=== PATIENT | female | born 1955 | race Caucasian/White ===

== ENCOUNTER 2025-05-14 05:20 | Day surgery (SDC) | payer MEDICARE, BC ==
[2025-05-05 14:28] LABS: LEUKOCYTE ESTERASE ,URINE LARGE (Neg); NITRITES, URINE NEGATIVE (Neg); OCCULT BLOOD,URINE SMALL (Neg)
[2025-05-05 14:29] LABS: MEAN PLATELET VOLUME 9.8 FL (7.4-10.4); RED CELL DISTRIBUTION WIDTH 14.8 % (11.5-14.5)
[2025-05-05 14:33] LABS: UA COLLECTION TYPE CLN CATCH MIDSTREAM
[2025-05-05 14:36] LABS: MUCUS STRANDS FEW /LPF (Neg); RENAL CELLS, URINE MODERATE /HPF; SQUAMOUS EPITHELIAL CELL,UR FEW /LPF (FEW)
[2025-05-05 14:37] LABS: YEAST FEW /HPF (NEGATIVE)
[2025-05-05 14:41] LABS: APTT 29 SECONDS (22-32); INR 1.0 INR
[2025-05-05 14:43] LABS: CREATININE 0.62 MG/DL (0.40-0.90); TOTAL CARBON DIOXIDE 27.3 MMOL/L (24-32); eGFR > 90 ML/MIN
--- NOTE | 2025-05-05 15:16 | RADIOLOGY REPORT ---
DI CHEST,TWO VIEWS, HISTORY: PRE OP CXR COMPARISON: None None TECHNICAL DATA: 2 view of the chest was obtained. FINDINGS: Lines and tubes: None Cardiomediastinal silhouette: normal Pulmonary vasculature: normal Lung expansion: normal Lung airspace: Trace left basilar atelectasis. Lung interstitium: normal Pleura: normal Pneumothorax: no Bones: Unremarkable Other: no IMPRESSION: Trace left basilar atelectasis.
[~2025-05-14] VITALS: Ht 165.1 cm; Wt 72.7 kg
[2025-05-14] VITALS (23 sets, daily range): BP systolic 86–134; BP diastolic 46–81; PULSE 52–95; RESP 10–18; TEMP 97.5–98.7; O2SAT 95–99
[~2025-05-14 05:20] MED LIST: ACET-896 PO; ALEN35TA53 PO; CALC-1215 PO; CELE-127 PO; CENTRUM SILVER; CRANBERRY; ESTR42.510 VG; HAIR SKIN NAILS; LEVO88TA2 PO; LORA10TA7 PO; MAXI TEARS; OMEP40CA21 PO; QUNOL; RED YEAST RICE
[2025-05-14] MEDS: ringers solution, lacted 1,000 ML IV SCH ×2 (06:08→11:00)
[2025-05-14] MEDS: ceFOXitin 2GM-NS 100mL ADDvant 100 ML IV ONE (06:08)
[2025-05-14] MEDS ORDERED: clindamycin phosphate 40gm vag cream ONE (06:54)
[2025-05-14] MEDS ORDERED: vasoPRESSIN 20 units/ml inj. ONE (06:54)
[2025-05-14] MEDS: aprepitant 40mg capsule PO ONE (07:14)
[2025-05-14] MEDS ORDERED: midazolam 1 mg/ML 2ml injection ONE (07:27)
[2025-05-14] MEDS ORDERED: fentaNYL /PF 50mcg/ml 5ml ampule ONE (07:53)
[2025-05-14] MEDS ORDERED: propofol inj 20 ML IV ONE (07:55)
[2025-05-14] MEDS ORDERED: dexamethasone sod phosphate 4mg/ml inj. ONE (07:55)
[2025-05-14] MEDS ORDERED: ondansetron/PF 4mg/2ml inj ONE (07:55)
[2025-05-14] MEDS ORDERED: rocuronium 10mg/ml inj IV ONE (07:55)
[2025-05-14] MEDS ORDERED: LIDOcaine 2% (20mg/ml) 5ml vial ONE (07:55)
[2025-05-14] MEDS ORDERED: glycopyrrolate 0.2mg/ml inj ONE (08:48)
[2025-05-14] MEDS ORDERED: fluoroscein sod 10% (100mg/ml) 5ml vial ONE (10:24)
[2025-05-14] MEDS ORDERED: ondansetron/PF 4mg/2ml inj IV PRN (11:00)
[2025-05-14] MEDS ORDERED: normal saline 500ml IV soln 500 ML IV PRN (11:00)
[2025-05-14] MEDS ORDERED: metoclopramide 5 mg/ml inj IV PRN (11:00)
[2025-05-14] MEDS ORDERED: HYDROcodone/acetaminophen 10/325mg tab PO PRN (11:00)
[2025-05-14] MEDS ORDERED: ringers solution, lacted 1,000 ML IV SCH (11:05)
[2025-05-14] MEDS ORDERED: acetaminophen 1,000mg/100ml IV 100 ML IV PRN (11:05)
[2025-05-14] MEDS ORDERED: HYDROmorphone/PF 0.2 MG/ML SYRINGE IV PRN ×2 (11:05)
[2025-05-14] MEDS ORDERED: labetalol 20mg/4ml (5mg/ml) syringe IV PRN (11:05)
[2025-05-14] MEDS ORDERED: hydrALAZINE 20mg/ml inj. IV PRN (11:05)
[2025-05-14] MEDS ORDERED: morphine 4 MG/ML inj SYRINge IV PRN (11:24)
[2025-05-14] MEDS: ondansetron/PF 4mg/2ml inj IV PRN (11:57)
[2025-05-14] MEDS: glycopyrrolate 0.2mg/ml inj IV ONE (11:57)
[2025-05-14] MEDS: morphine 4 MG/ML inj SYRINge IV PRN (12:30)
--- NOTE | 2025-05-14 19:08 | OPERATIVE REPORT ---
DATE OF SURGERY: 05/14/2025 DICTATING PHYSICIAN: Francisco Javier Trent MD PREOPERATIVE DIAGNOSIS: Symptomatic pelvic organ prolapse. POSTOPERATIVE DIAGNOSIS: Symptomatic pelvic organ prolapse. SURGEON: Francisco Javier Trent MD ANESTHESIOLOGIST: Dr. Rodri Angel ANESTHESIA: General. PROCEDURES: Laparoscopic assisted vaginal hysterectomy with right salpingo-oophorectomy, uterosacral vaginal vault suspension, anterior and posterior repairs, and cystoscopy. FINDINGS: Stage 3 uterine procidentia, moderate cystocele, and a large rectocele. LAPAROSCOPIC FINDINGS: There were some bowel adhesions at the right anterior abdominal wall in the lower abdominal area. These were nonobstructed. Small fibroid uterus, atrophic, and otherwise normal-appearing right tube and ovary. The left tube and ovary were not visualized possibly due to prior surgery versus congenital absence. Some scarring was noted in the vicinity, however. ESTIMATED BLOOD LOSS: 100 mL. COMPLICATIONS: None. INDICATIONS: The patient is a 70-year-old female with symptomatic pelvic organ prolapse. The patient had used a pessary in the past and was no longer comfortable with it and desires surgical management. Agreed to the above procedures. TECHNIQUE: The patient was taken to the OR where general anesthesia was found to be adequate. She was placed in a lithotomy position. She was prepped and draped in the usual sterile fashion. The cervix was infiltrated with a dilute solution of vasopressin. A ANDRAE manipulator was placed transcervically. A transurethral catheter was placed and we proceeded to the laparoscopic procedure. We changed gloves. A Veress needle was introduced to the umbilicus and the abdomen was insufflated with CO2 gas to 15 mmHg. The Veress needle was removed and a 5 mm port was placed through the umbilicus. A laparoscope was introduced and the patient was placed in Trendelenburg position. An 8 mm port was then placed at the left lower quadrant followed by a 5 mm port at the right lower quadrant. Pelvic organs were inspected with findings as noted above. The right infundibulopelvic ligament was identified and sequentially coagulated and divided with the LigaSure device. The incision was extended to include the utero-ovarian tubal ligament complex, which was coagulated and divided, and the tube and ovary were amputated. The right round ligament was identified and coagulated and divided. The incision was extended inferiorly along the anterior and posterior leaves of the broad ligament to the level of the cardinal ligament. The right uterine vessels were identified, coagulated, and divided. The entire procedure was then duplicated on the left aspect with the exception of excision of left tube and ovary. The vesicouterine peritoneum was identified and sequentially transversely coagulated and divided in its entirety. The bladder was dissected bluntly exposing the cervix. Anterior and posterior colpotomies were then performed sequentially with application of monopolar coagulating current through a monopolar spatula. The uterosacral ligaments were then identified and tagged bilaterally sequentially with the LigaSure device. The CO2 gas was allowed to egress and we proceeded to the vaginal aspect of the surgery. The ANDRAE manipulator was removed. Anterior and posterior transvaginal wall retractors were placed. The cervix was placed under traction and the uterosacral ligaments were sequentially and bilaterally clamped, cut, and suture ligated with 0 Vicryl sutures. In this fashion, the uterus with the attached cervix were extracted transvaginally without difficulty. The right tube and ovary were also removed at this time. The uterosacral ligaments were then identified and sequentially and bilaterally suture ligated to the respective right and left angles of the vaginal cuff with 0 Ethibond sutures. The vaginal cuff was reapproximated with interrupted sutures of 0 Vicryl. At this point, we proceeded to the repair of the cystocele. The midline vaginal tissue overlying the cystocele was infiltrated with a dilute solution of vasopressin. The vaginal epithelium was then sharply divided and placed under traction with T-clamps bilaterally. The pubovesical fascia was then dissected up bluntly. A right lateral defect was identified. The fascia was then reapproximated with plicating sutures of 2-0 Vicryl. The excess vaginal epithelium was trimmed away and the vaginal incision was closed with a running 2-0 Vicryl suture. At this point, we proceeded to identification of the extent of the rectocele, which basically extended the entire length of the posterior floor to the level of the vaginal cuff. Again, the midline was infiltrated with dilute vasopressin. The vaginal epithelium was divided sharply and placed under traction with bilateral T-clamps. The rectovaginal fascia was dissected off bluntly and plicating sutures of 2-0 Vicryl were then placed along the entire length of the incision. The excess vaginal epithelium was trimmed away. The skin was then closed with a running 2-0 Vicryl suture. FloSeal was placed within the posterior incision for hemostasis. At this point, we proceeded to evaluation of the ureteral patency with a cystoscopy. The cystoscope was advanced transurethrally and fluorescein dye was administered by the anesthesiologist through the IV. Urine was ejected sequentially and bilaterally and the cystoscopy was terminated. The transurethral catheter was replaced. Vaginal packing was then placed. We proceeded at this point to the final laparoscopic inspection. Again, the abdomen was insufflated with CO2 gas to 15 mmHg. Hemostasis was confirmed throughout the pelvis. A solution of Marcaine and saline was then freely sprayed over the dome of the liver. The CO2 gas was allowed to egress with no bleeding noted. All instruments were removed including the trocars. The skin incisions were closed subcuticularly with 4-0 Vicryl sutures and sealed off with Dermabond sequentially. Sponge, lap, instrument, and needle counts were reported correct. PATHOLOGY: Uterus and right tube and ovary. DISPOSITION: The patient was taken to the recovery room in stable condition. Francisco Javier Trent MD TID: [id number] RECEIPT: [id number] [facility]
[2025-05-14] MEDS: docusate sod 100mg capsule PO SCH (21:28)
[2025-05-15] MEDS: ketorolac trometh 30MG/ML vial 30 MG/ML VIAL IV PRN (01:12)
[2025-05-15 05:02] LABS: MEAN PLATELET VOLUME 9.6 FL (7.4-10.4); RED CELL DISTRIBUTION WIDTH 14.8 % (11.5-14.5)
[2025-05-15 05:10] LABS: CREATININE 0.64 MG/DL (0.40-0.90); TOTAL CARBON DIOXIDE 28.9 MMOL/L (24-32); eCRCL 74 ML/MIN; eGFR > 90 ML/MIN
[2025-05-15 06:00] VITALS: BP 120/65; PULSE 82; RESP 14; TEMP 98.4; O2SAT 94
[2025-05-15 08:40] VITALS: RESP 18
[2025-05-15] MEDS: HYDROcodone/acetaminophen 10/325mg tab PO PRN (08:40)
[2025-05-15] MEDS: magnesium hydroxide 30ml (MOM) UD suspension PO PRN (10:10)
--- NOTE | 2025-05-15 17:05 | DISCHARGE SUMMARY ---
DATE OF DISCHARGE: 05/15/2025 DICTATING PHYSICIAN: Francisco Javier Trent MD ADMISSION DIAGNOSIS: Pelvic organ prolapse. DISCHARGE DIAGNOSIS: Status post surgical management of pelvic organ prolapse. ADMISSION INFORMATION: The patient is a 70-year-old female with significantly symptomatic pelvic organ prolapse including stage 3 uterine procidentia, grade 3/3 rectocele, and a small cystocele. HOSPITAL COURSE: On 05/14/2025, the patient was taken to the OR where an uncomplicated laparoscopic-assisted vaginal hysterectomy with right salpingo-oophorectomy was performed. A left tube and ovary were not identified. The patient underwent also a uterosacral vaginal vault suspension, anterior and posterior repairs, and cystoscopy. The patient's blood loss was lower than average. There were no complications. Her postoperative course has been uncomplicated. She has remained afebrile throughout her hospital stay. She is ambulating without difficulty and tolerating a regular diet. The patient has voided multiple times. Denies any significant pain. PHYSICAL EXAMINATION: GENERAL: On exam, she is alert, oriented, and in no distress. VITAL SIGNS: Temperature of 98.4. Respiratory rate of 14. Blood pressure is 120/65. Her pulse is 82. She is saturating 94% on room air. Ins and outs are within normal limits. ABDOMEN: Mildly distended. There is minimal tenderness to palpation. The incisions are clean, dry, and intact. PELVIC: A pelvic exam was deferred. LABORATORY DATA: Significant labs, recent CBC showed a white count of 11.2, hemoglobin of 12.1, and platelets of 212. Chemistry panel is within normal limits. Her creatinine is 0.64. ASSESSMENT: A 70-year-old female status post surgical management of pelvic organ prolapse as described above. The patient is doing very well today and she is deemed ready for discharge home. PLAN: The patient will follow up with me in 2 weeks. Duration of disability is 6 weeks. DISCHARGE MEDICATIONS: The patient will continue her outpatient medications. She was also prescribed p.r.n. pain medications and a stool softener. ACTIVITY: She is to not lift objects over 10 pounds for 6 weeks. She has been instructed to also observe pelvic rest for 6 weeks. DIET: Regular. DISPOSITION: The patient will be discharged home today in improved condition. Francisco Javier Trent MD TID: [id number] RECEIPT: [id number] [facility]
== END 2025-05-15 13:50 | disposition home or self-care (01) ==
LOC: PAS 05:20 → SUR 3N 11:18 → PAS 05-15 13:50
PROVIDERS: ATTEND Obstetrics & Gynecology Obstetrics
DX: N81.89 Other female genital prolapse (principal); N81.3 Complete uterovaginal prolapse; E03.9 Hypothyroidism, unspecified; K21.9 Gastro-esophageal reflux disease without esophagitis; Z87.891 Personal history of nicotine dependence; Z79.890 Hormone replacement therapy; Z79.899 Other long term (current) drug therapy; Z96.643 Presence of artificial hip joint, bilateral; Z98.890 Other specified postprocedural states
CPT/HCPCS: 36415; 57265; 57425; 58552; 71046; 80048; 80053; 81001; 82948; 85025; 85610; 85730; 86885; 86900; 86901; 87081; 87088; 88307; 88311; A4314; A4615; A4618; A5200; A7000; J0694; J1100; J1885; J2003; J2250; J2270; J2405; J2704; J3010; J3490; J7030; J7120; Z7506; Z7508; Z7512; Z7610; G0378